=== PATIENT | female | born 1995 | race Caucasian/White ===

== ENCOUNTER → 2016-10-27 | Outpatient (CLI) | payer BC | LOC: CIMAGING 16:30 | PROVIDERS: ATTEND Physician Assistant Medical | DX: Z30.431 Encounter for routine checking of intrauterine contraceptive device (principal) | CPT/HCPCS: 76856-PO ==

== ENCOUNTER 2017-02-25 21:56 | Emergency (ER) | payer BC ==
[2017-02-25] MEDS ORDERED: AMOXICILLIN/CLAVULANATE POT 875/125 MG TAB PO ONE (22:52)
--- NOTE | 2017-02-25 22:54 | EDPHY ---
H & P Stated Complaint: dog bite Time Seen by Provider: 02/25/17 22:43 HPI/ROS: HPI The patient presents with dog bite which occurred at about 6:00 p.m. tonight. She was walking to a friend's house when a neighbor's dog bit her several times , running out of its fencing. She was bit to her anterior left and right thigh eyes and lateral left thigh as well as left hand. She was wearing jeans on her legs. The dog per owners' reports has had its vaccines. She had ongoing bleeding from right anterior thigh wound and came into the emergency department. She is able to walk. She does not have foreign body sensation. REVIEW OF SYSTEMS Constitutional: No fever, no chills. Skin: No rashes. Neurological: No headache. PMHx: Healthy Soc Hx: College student PHYSICAL General Appearance: Alert, no distress Eyes: Pupils equal and round no pallor or injection ENT, Mouth: Mucous membranes moist Respiratory: Breathing comfortably Neurological: A&O, moves all extremities Skin: Left and right anterior thighs with total of 4 puncture wounds with surrounding ecchymoses, left lateral thigh with superficial puncture wound, left hand with abrasion Extremities: symmetrical, full range of motion Psychiatric: Patient is oriented X 3, there is no agitation Source: Patient Exam Limitations: No limitations - Personal History LMP (Females 10-55): 8-14 Days Ago Current Tetanus Diphtheria and Acellular Pertussis (TDAP): Yes - Medical/Surgical History Hx Asthma: No Hx Chronic Respiratory Disease: No Hx Diabetes: No Hx Cardiac Disease: No Hx Renal Disease: No Hx Cirrhosis: No Hx Alcoholism: No Hx HIV/AIDS: No Hx Splenectomy or Spleen Trauma: No - Social History Smoking Status: Never smoked Constitutional: Initial Vital Signs Temperature (C) 37.3 C 02/25/17 21:58 Heart Rate 125 H 02/25/17 21:58 Respiratory Rate 20 02/25/17 21:58 Blood Pressure 145/82 H 02/25/17 21:58 O2 Sat (%) 97 02/25/17 21:58 Allergies/Adverse Reactions: No Known Allergies Allergy (Unverified 02/25/17 21:58) Home Medications: Medication Instructions Recorded Amoxicillin/Clavulanate Pot 875 mg PO BID #14 tab 02/25/17 [Augmentin 875 MG TAB (*)] Medical Decision Making Differential Diagnosis: 21-year-old healthy female presents about 4 hours after multiple dog bites from neighbor's dog to her legs. Currently, there are no signs of superinfection, however she is at risk. Plan for wound irrigation, her tetanus vaccination is up-to-date, there is no concern for rabies in this dog, police will verify vaccination status of dog, will discharge on Augmentin with 1st dose given in emergency department. Departure - Departure Disposition: Home, Routine, Self-Care Clinical Impression: Dog bite Qualifiers: Encounter type: initial encounter Qualified Code(s): W54.0XXA - Bitten by dog, initial encounter Condition: Good Instructions: Animal Bite (ED) Additional Instructions: Please monitor your skin for any redness, swelling, increased pain or drainage. This is a sign of infection and he will need to return to the emergency department if this develops. Referrals: NIKKIE Simpson,. [Clinic] - As per Instructions Prescriptions: Amoxicillin/Clavulanate Pot [Augmentin 875 MG TAB (*)] 875 mg PO BID #14 tab
[2017-02-25 23:34] VITALS: BP 116/72; PULSE 108; RESP 16; TEMP 98.2; O2SAT 98
== END 2017-02-25 23:32 | disposition home or self-care (01) ==
DX: S71.131A Puncture wound without foreign body, right thigh, initial encounter (principal); S71.132A Puncture wound without foreign body, left thigh, initial encounter; S61.432A Puncture wound without foreign body of left hand, initial encounter; W54.0XXA Bitten by dog, initial encounter; Y92.009 Unspecified place in unspecified non-institutional (private) residence as the place of occurrence of the external cause; Y99.8 Other external cause status; Y93.89 Activity, other specified